=== PATIENT | male | born 1995 | race Caucasian/White ===

== ENCOUNTER 2016-06-17 21:50 | Emergency (ER) | payer SELFPAY ==
[2016-06-17] MEDS ORDERED: DICYCLOMINE 20MG/2ML VIAL IM ONE (23:50)
== END 2016-06-18 00:45 | disposition home or self-care (01) ==
LOC: ER 21:50
DX: R10.31 Right lower quadrant pain (principal); R10.32 Left lower quadrant pain; Z79.899 Other long term (current) drug therapy; Z87.891 Personal history of nicotine dependence
CPT/HCPCS: 36415; 74022; 80053; 81003; 83690; 85025; 96372